=== PATIENT | female | born 2000 | race African-American/Black ===

== ENCOUNTER 2020-11-02 09:16 | Emergency (ER) | payer BC, OTHER ==
[2020-11-02] MEDS ORDERED: Dexamethasone 4 MG TAB ONE (10:37)
[2020-11-02] MEDS ORDERED: Ibuprofen 200 MG TAB ONE (10:37)
== END 2020-11-02 10:30 | disposition home or self-care (01) ==
LOC: CSHERS 09:16
DX: J02.9 Acute pharyngitis, unspecified (principal); J06.9 Acute upper respiratory infection, unspecified
CPT/HCPCS: 71045; 93005; J8540

== ENCOUNTER 2024-01-23 18:42 | Day surgery (SDC) | payer OTHER ==
[2024-01-23] MEDS ORDERED: hydrALAZINE 20 MG/ML VIAL SLOW IVP PRN (19:37)
[2024-01-23] MEDS ORDERED: Lactated Ringer's 1,000 ML IV SCH (19:45)
[2024-01-23 19:48] VITALS: BMI 52.9
[2024-01-23] MEDS ORDERED: Acetaminophen 500 MG TAB PO SCH (20:00)
[2024-01-23] MEDS: Ondansetron PF 4 MG/2 ML Vial IVP SCH (20:56)
[2024-01-23 21:21] LABS: #Basophils 0.05 10x3/uL (0.0-0.2); #Eosinophils 0.05 10x3/uL (0.0-0.5); #Monocytes 0.78 10x3/uL (0.0-1.1); #Neutrophils 9.17 10x3/uL (1.5-8.4); %Basophils 0.4 % (0.0-2.0); %Eosinophils 0.4 % (0.0-6.0); %Monocytes 6.1 % (0.0-10.0); %Neutrophils 71.8 % (40.0-75.0); Hematocrit 29.8 % (34.9-44.5); Hemoglobin 9.7 g/dL (12.0-15.5); Mean Corpuscular HGB CONC 32.6 g/dL (32.0-36.0); Mean Corpuscular Hemoglobin 22.1 pg (27.0-33.0); Mean Platelet Volume 10.4 fL (7.4-10.4); Platelet Count 483 10x3/uL (150-450); RBC Distribution Width 17.7 % (11.5-14.5); Red Blood Cell (RBC) Count 4.38 10x6/uL (3.90-5.03); White Blood Cell (WBC) Count 12.8 10x3/uL (3.5-10.5)
[2024-01-23 21:25] LABS: ALT (SGPT) 12 U/L (8-55); AST (SGOT) 16 U/L (5-34); Albumin 3.1 g/dL (3.5-5.0); Alkaline Phosphatase 49 U/L (40-110); Anion Gap 13 mmol/L (10-20); BUN (Urea Nitrogen) 4 mg/dL (7.0-18.7); Bilirubin, Total 0.4 mg/dL (0.2-1.2); Calc. Creatinine Clearance 265 mL/min (70-130); Calcium 9.7 mg/dL (7.8-10.44); Carbon Dioxide 20 mmol/L (22-29); Chloride 107 mmol/L (98-107); Estimated GFR 127; Glucose 78 mg/dL (70-105); Lipase 15 U/L (8-78); Potassium 4.4 mmol/L (3.5-5.1); Protein, Total 7.1 g/dL (6.0-8.3); Sodium 136 mmol/L (136-145)
[2024-01-23 21:56] LABS: Anisocytosis SLIGHT = 6-15 cells (100X) (0-5/hpf); Hypochromia SLIGHT = 6-15 cells (100X) (0-5/hpf); Microcytosis MODERATE=15-30 cells (100X) (0-5/hpf); Ovalocytes SLIGHT = 2-5 cells (100X) (0-1/hpf); Platelet Adequacy Comment Appears Increased
[2024-01-23 22:05] LABS: Bilirubin Neg (Negative); Blood, Urine Negative (Negative); Clarity Clear (Clear); Glucose, Urine (Dipstick) Normal (Negative); Ketone, Urine 50 mg/dL (Negative); Leukocyte Negative (Negative); Nitrite Negative (Negative); Protein, Urine (Dipstick) Negative (Neg-Trace); Specific Gravity, Urine 1.015 (1.005-1.030); pH, Urine 6.5 (5.0-9.0)
[2024-01-23 22:47] LABS: Bacteria/HPF 2+ HPF (None Seen); CAUTI Indications for Culture Pregnancy; RBC/HPF 0-3 HPF (0-3); Squamous Epithelial 0-3 HPF (0-3); WBC/HPF 0-3 HPF (0-3)
[2024-01-23 22:48] LABS: Urine Culture Reflex Yes Yes
== END 2024-01-23 22:38 | disposition home or self-care (01) ==
LOC: MERGE 18:42 → CSHLD/OP 18:42
PROVIDERS: ATTEND Family Medicine
DX: O21.0 Mild hyperemesis gravidarum (principal); O99.282 Endocrine, nutritional and metabolic diseases complicating pregnancy, second trimester; E86.0 Dehydration; O13.2 Gestational [pregnancy-induced] hypertension without significant proteinuria, second trimester; Z3A.20 20 weeks gestation of pregnancy; Z87.59 Personal history of other complications of pregnancy, childbirth and the puerperium; Z79.82 Long term (current) use of aspirin; Z79.899 Other long term (current) drug therapy
CPT/HCPCS: 80053; 81001; 83690; 85025; 87086; 96360; 99283; J2405

== ENCOUNTER 2024-01-31 13:33 | Outpatient (CLI) | payer OTHER | END 2024-01-31 13:34 | disposition home or self-care (01) | LOC: CSHULT 13:33 | PROVIDERS: ATTEND Family Medicine | DX: O09.892 Supervision of other high risk pregnancies, second trimester (principal); Z3A.20 20 weeks gestation of pregnancy | CPT/HCPCS: 76805 ==

== ENCOUNTER 2024-03-08 06:01 | Day surgery (SDC) | payer OTHER ==
[2024-03-08 06:22] VITALS: BMI 50.8
[2024-03-08] MEDS ORDERED: hydrALAZINE 20 MG/ML VIAL SLOW IVP PRN (07:23)
[2024-03-08] MEDS ORDERED: Lactated Ringer's 1,000 ML IV SCH (07:30)
[2024-03-08] MEDS ORDERED: Ondansetron ODT 4 MG TAB SL PRN (07:45)
[2024-03-08] MEDS: Ondansetron PF 4 MG/2 ML Vial IVP PRN (07:54)
[2024-03-08] MEDS: Acetaminophen 500 MG TAB PO SCH (07:54)
[2024-03-08 08:25] LABS: ALT (SGPT) 11 U/L (8-55); AST (SGOT) 15 U/L (5-34); Albumin 2.8 g/dL (3.5-5.0); Alkaline Phosphatase 56 U/L (40-110); Anion Gap 11 mmol/L (10-20); BUN (Urea Nitrogen) 4 mg/dL (7.0-18.7); Bilirubin, Total 0.5 mg/dL (0.2-1.2); Calc. Creatinine Clearance 233 mL/min (70-130); Calcium 8.8 mg/dL (7.8-10.44); Carbon Dioxide 19 mmol/L (22-29); Chloride 108 mmol/L (98-107); Estimated GFR 125; Globulin 4.1 g/dL (2.4-3.5); Glucose 83 mg/dL (70-105); Potassium 3.4 mmol/L (3.5-5.1); Protein, Total 6.9 g/dL (6.0-8.3); Sodium 135 mmol/L (136-145)
== END 2024-03-08 10:04 | disposition home or self-care (01) ==
LOC: CSHLD/OP 06:01
PROVIDERS: ATTEND Family Medicine
DX: O99.891 Other specified diseases and conditions complicating pregnancy (principal); R05.9 Cough, unspecified; R51.9 Headache, unspecified; R50.9 Fever, unspecified; R11.2 Nausea with vomiting, unspecified; O34.211 Maternal care for low transverse scar from previous cesarean delivery; Z79.82 Long term (current) use of aspirin; Z79.899 Other long term (current) drug therapy; Z3A.26 26 weeks gestation of pregnancy
CPT/HCPCS: 36415; 80053; 87428; 96360; 96365; 99283; J2405